=== PATIENT | male | born 1985 | race Two or more races ===

== ENCOUNTER 2020-02-07 16:45 | Emergency (ER) | payer SELFPAY | END 2020-02-07 20:48 | disposition left against medical advice (07) | LOC: ER 16:45 | DX: R50.9 Fever, unspecified (principal); Z53.21 Procedure and treatment not carried out due to patient leaving prior to being seen by health care provider ==

== ENCOUNTER → 2021-03-04 | Outpatient (CLI) | payer SELFPAY ==
[2021-02-16 11:00] VITALS: BP 125/86
[~2021-03-04] MED LIST: ACET325T21 PO; AMOX1TAB11 PO; CIPR250T30 PO; DOCU100C28 PO; IOHEXOL 240 MG/ML 50ML VIAL. PO ONE; IOHEXOL 300 MG/ML 100ML VIAL. IV ONE; LACT1CAP19 PO; OXYC1TAB15 PO
--- NOTE | 2021-03-04 11:03 | KCIC ---
EXAMINATION: CT abdomen and pelvis with IV contrast. INDICATION:36 years, Male, follow-up abscess, post appendectomy. TECHNIQUE: Axial CT images of the abdomen and pelvis were obtained. Coronal and sagittal reformatted performed. COMPARISON: 02/11/2021. Exposure: One or more of the following individualized dose reduction techniques were utilized for thi s examination: 1. Automated exposure control 2. Adjustment of the mA and/or kV according to patient size 3. Use of iterative reconstruction technique. FINDINGS: LOWER CHEST: Unremarkable ABDOMEN/PELVIS: Interval resolution of the bilateral lower quadrant abscesses with residual soft tissue thickening an d adjacent fat stranding. Peritoneal drainage catheter remains unchanged in position, terminates in t he right paracolic gutter. No new abscess identified. Near complete resolution of the focal fat stran ding adjacent to the lateral descending colon. Normal morphology and size of the liver with homogeneous enhancement. Focal fat infiltration adjacent to the falciform ligament. Mild diffuse hepatic steatosis. Unremarkable gallbladder, biliary ducts, spleen and pancreas. No adrenal nodule. No hydronephrosis in either kidney. Unchanged simple appearin g left renal cyst. No bowel obstruction or wall thickening. Post appendectomy changes. No lymphadenopathy in the abdomen or pelvis by size criteria. Unremarkable urinary bladder and prostate. Normal caliber abdominal aort a. Mesenteric arteries and portal vein are patent. MUSCULOSKELETAL: Degenerative changes at L5-S1. No acute osseous process. IMPRESSION: 1. Interval resolution of the bilateral lower quadrant abscesses with residual soft tissue thickenin g and adjacent fat stranding. Peritoneal drainage catheters remains unchanged in position, terminates in the right paracolic gutter. No new abscess identified. 2. Near complete resolution of the focal fat stranding adjacent to the lateral descending colon. Electronically signed by: Julissa Redmond MD (03/04/2021 11:01 AM) [facility]
== END ==
LOC: KCIC CT 08:56
PROVIDERS: ATTEND Nurse Practitioner Family
DX: K35.33 Acute appendicitis with perforation, localized peritonitis, and gangrene, with abscess (principal); K76.0 Fatty (change of) liver, not elsewhere classified; M47.817 Spondylosis without myelopathy or radiculopathy, lumbosacral region
CPT/HCPCS: 74177; Q9966; Q9967